=== PATIENT | male | born 1970 | race Caucasian/White ===

== ENCOUNTER 2022-05-18 07:35 | Outpatient (CLI) | payer OTHER, SELFPAY ==
--- NOTE | 2022-06-05 18:50 | WPDHOMESLEEP ---
Sleep Study - Home Unattended Date of Study: 05/18/22 Ordering Provider: Keren Gallego NP Interpreting Provider: Zina Beatty, DO Home Sleep Study Type: Watch PAT Height: 1.75 m Weight: 90.718 kg Body Mass Index: 29.5 Neck Circumference (inches): 16.75 [place]: 6 Reason for Sleep Study Loud snoring Sleep History The patient is a 51-year-old male with GERD and hyperlipidemia that had a sleep study ordered by his primary care for evaluation of sleep apnea. 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 He denies awakening from sleep short of breath. He occasionally awakens at night with heartburn, belching or cough. He constantly snores loud enough that others complain. He denies having trouble sleeping when he has a cold. He denies waking up gasping for air throughout the night. He denies having breathing problems at night observed by himself or others. He occasionally sweats excessively at night. He denies having heart palpitations or irregular heartbeats during the night. He occasionally falls asleep during the day but never while driving. He denies sleep paralysis, cataplexy and hypnagogic / hypnopompic hallucinations. He rarely feels afraid of going to sleep. He denies having trouble at school or work due to sleepiness. He denies having nightmares. He denies remembering his dreams. He occasionally has thoughts racing through his mind. He rarely feels sad or depressed. He occasionally has anxiety. He denies having muscular tension. He denies noticing parts of his body jerk. He denies kicking during the night. He denies having crawling and aching feelings in his legs as well as leg pain during the night. He denies grinding his teeth during sleep and awakening with morning jaw pain. He denies being bothered by pain during the day and being awakened by pain during the night. He denies waking up feeling stiff in the morning. He denies waking up with sore achy muscles. He denies waking up with pain in the neck, spine or other joints. He goes to bed at 7:30 p.m. on both weekdays and weekends. He is able to fall asleep within a few minutes. He wakes up twice throughout the night to urinate. He is able to fall back asleep immediately. He wakes up at 2:30 a.m. on both weekdays and weekends. He typically gets 6 hours of sleep per night. He does not stay in bed after waking up in the morning. He currently lives with his girlfriend and her daughter. He denies consuming any caffeinated beverages within 2 hours of bedtime. He does not engage in physical exercise before bedtime. He will watch television before falling asleep. He denies taking naps in the afternoon or the evening. He will consume 300 mg of caffeine per day. He denies tobacco, alcohol and recreational drug use. [facility] Past Medical History Medical History Acute shoulder pain Allergies BMI 28.0-28.9,adult CAD (coronary artery disease) Colon cancer screening Encounter to establish care Erectile dysfunction Fracture of skull (~2004) GERD (gastroesophageal reflux disease) Hemorrhoids Hyperlipidemia Hypersomnia Screening for prostate cancer Snoring Spontaneous pneumothorax (~1988) Tinea versicolor Wellness examination Family History Family History Father Cancer Hypertension Heart disease Cerebrovascular accident Grandparent Alcoholism Cancer Hypertension Heart disease Grandparent Cancer Diabetes mellitus Hypertension Heart disease Cerebrovascular accident Social History Social History Smoking status: Never smoker Alcohol intake: never Substance use: never Substance use type: does not use Medications Home Medications Medication Instructions Recorded Confirmed Type sildenafil 50 mg tablet (Viagra) 50 mg PO DAILY PRN sexual activity 05/30
[2022-06-05 23:35] VITALS: BMI 29.5
== END 2022-05-21 10:48 | disposition home or self-care (01) ==
PROVIDERS: PCP Nurse Practitioner Family; Visit Provider Nurse Practitioner Family
DX: G47.10 Hypersomnia, unspecified (principal)
CPT/HCPCS: 95800

== ENCOUNTER 2022-08-02 11:22 | Day surgery (SDC) | payer OTHER, SELFPAY ==
[2022-06-01 12:09] VITALS: BMI 29.5
[2022-07-18 14:28] VITALS: BMI 29.6
[2022-08-02 11:51] VITALS: BMI 29.3
[2022-08-02 11:54] VITALS: BP 135/77; PULSE 91; RESP 18; TEMP 37; O2SAT 100
--- NOTE | 2022-08-02 12:54 | PM.HPGS ---
History of Present Illness History of Present Illness Consent: Risks, benefits, and alternatives have been discussed and questions answered. Patient agrees to proceed with procedure. Chief complaint: Neoplasm Screening Narrative: Zach Cool is a 52 year old male Presents for screening colonoscopy. Patient's current weight appetite and bowel movements are normal. Patient denies abdominal pain. He has had no bleeding. Family history noncontributory. Patient does have a history of acid reflux disease. Currently well controlled with diet control and acid suppression. Patient currently takes pantoprazole 20mg p.o. daily. Review of Systems Review of Systems: Review of systems noncontributory. [facility] Past Medical History Medical History (Updated 07/23/22 @ 08:49 by Keren Gallego NP) Acute shoulder pain Allergies BMI 28.0-28.9,adult BMI 29.0-29.9,adult CAD (coronary artery disease) Colon cancer screening Encounter to establish care Erectile dysfunction Fracture of skull (~2004) GERD (gastroesophageal reflux disease) Hemorrhoids Hyperlipidemia Hypersomnia Screening for diabetes mellitus Screening for prostate cancer Snoring Spontaneous pneumothorax (~1988) Tinea versicolor Wellness examination Family History Family History Father Cancer Hypertension Heart disease Cerebrovascular accident Grandparent Alcoholism Cancer Hypertension Heart disease Grandparent Cancer Diabetes mellitus Hypertension Heart disease Cerebrovascular accident Social History Social History (Updated 07/23/22 @ 08:32 by Concepcion Tate, [facility]) Smoking status: Never smoker Alcohol intake: never Substance use: never Substance use type: does not use Lack of Transportation: No Lack of Food: Never True Current Housing: I Have Housing Concerned About Future Housing: No Difficulty Paying Gas/Electric Bills: No Difficulty Paying for Meds: No Currently Unemployed: No Education: Associate Degree Difficulty w/ Childcare or Family Care: No Living arrangements: alone Spiritual care concerns: No Meds Home Medications and Allergies Home Medications Medication Instructions Recorded Confirmed Type sildenafil 50 mg tablet (Viagra) 50 mg PO DAILY PRN sexual activity 05/30/21 07/23/22 Rx #9 tabs hydrocortisone 2.5 % topical cream 1 applic RECTAL DAILY PRN 03/23/22 07/23/22 Rx with perineal applicator hemorrhoids #30 grams pantoprazole 20 mg tablet,delayed 20 mg PO QAM #30 tabs 03/23/22 07/23/22 Rx release rosuvastatin 40 mg tablet 40 mg PO DAILY 03/23/22 07/23/22 History sodium,potassium,mag sulfates 17.5 See Rx Instructions PO .COMPLEX 06/01/22 07/23/22 Rx gram-3.13 gram-1.6 gram oral soln #354 mL (Suprep Bowel Prep Kit) fluconazole 150 mg tablet 300 mg PO . once weekly PRN Rash 07/18/22 07/23/22 History (Diflucan) multivitamin with minerals-folic 1 tablet PO DAILY 07/18/22 07/23/22 History acid 0.4 mg tablet terbinafine HCl 1 % topical cream 1 applic topical BID PRN Rash 07/18/22 08/02/22 History Allergies Allergy/AdvReac Type Severity Reaction Status Date / Time Penicillins Allergy Severe Other Verified 08/02/22 11:45 Exam Narrative: Physical exam reveals patient to be alert. Vital signs stable. HEENT exam is unremarkable. Patient is anicteric. Lungs are clear to auscultation and percussion. Heart is without murmur or extra sounds. Abdomen bowel sounds present soft nontender with no organomegaly. Digital external rectal exam is normal. Assessment and Plan Assessment and plan (1) Colon cancer screening: Code(s): Z12.11 - Encounter for screening for malignant neoplasm of colon Status: Acute Assessment and Plan: Patient presents today for screening colonoscopy. He appears to be at average risk for colon polyps. Further recommendations may be given after endoscopy.
[2022-08-02] MEDS: LACTATED RINGERS 1,000 ML 150 ML IV CONT ×2 (13:09→13:46)
--- NOTE | 2022-08-02 13:11 | WPDANESEPPF ---
Anes - Initial Pre Proc Eval Procedure: Operation Date: 08/02/22 13:00 Proposed Procedures p Screening Colonoscopy - Morgan Samaniego MD Date/Time: 08/02/22 13:11 Surgeon: Morgan Samaniego MD Pre Op Diagnosis: Neoplasm Screening Patient Data Age: 52 Gender: M Height: 1.75 m Weight: 90.1 kg Allergies Allergy/AdvReac Type Severity Reaction Status Date / Time Penicillins Allergy Severe Other Verified 08/02/22 11:45 Home Medications Medication Instructions Recorded Confirmed Type sildenafil 50 mg tablet (Viagra) 50 mg PO DAILY PRN sexual activity 05/30/21 07/23/22 Rx #9 tabs hydrocortisone 2.5 % topical cream 1 applic RECTAL DAILY PRN 03/23/22 07/23/22 Rx with perineal applicator hemorrhoids #30 grams pantoprazole 20 mg tablet,delayed 20 mg PO QAM #30 tabs 03/23/22 07/23/22 Rx release rosuvastatin 40 mg tablet 40 mg PO DAILY 03/23/22 07/23/22 History sodium,potassium,mag sulfates 17.5 See Rx Instructions PO .COMPLEX 06/01/22 07/23/22 Rx gram-3.13 gram-1.6 gram oral soln #354 mL (Suprep Bowel Prep Kit) fluconazole 150 mg tablet 300 mg PO . once weekly PRN Rash 07/18/22 07/23/22 History (Diflucan) multivitamin with minerals-folic 1 tablet PO DAILY 07/18/22 07/23/22 History acid 0.4 mg tablet terbinafine HCl 1 % topical cream 1 applic topical BID PRN Rash 07/18/22 08/02/22 History Patient hx anesthesia problems: none Family hx anesthesia problems: none Results Review: All pre-operative results and documents have been reviewed as part of the pre-operative evaluation. [facility] Past Medical History Medical History BMI 29.0-29.9,adult Colon cancer screening Erectile dysfunction GERD (gastroesophageal reflux disease) Hemorrhoids Hyperlipidemia Spontaneous pneumothorax (~1988) Family History Family History Father Cancer Hypertension Heart disease Cerebrovascular accident Grandparent Alcoholism Cancer Hypertension Heart disease Grandparent Cancer Diabetes mellitus Hypertension Heart disease Cerebrovascular accident Social History Social History Smoking status: Never smoker Alcohol intake: never Substance use: never Substance use type: does not use Lack of Transportation: No Lack of Food: Never True Current Housing: I Have Housing Concerned About Future Housing: No Difficulty Paying Gas/Electric Bills: No Difficulty Paying for Meds: No Currently Unemployed: No Education: Associate Degree Difficulty w/ Childcare or Family Care: No Living arrangements: alone Spiritual care concerns: No Anes - Eval Final PreProcedure Day of Procedure 08/02/22 13:11 Patient weight: overweight Heart: regular rate and rhythm Lungs: clear to auscultation Airway: Mallampati scale class II Neurological: alert and oriented Last oral intake: >/= 8 hours ASA classification: II Emergent: no Anesthetic plan: proceed Anesthesia type and monitoring: general GIVS and standard monitoring Results Review: All pre-operative results and documents have been reviewed as part of the pre-operative evaluation. Informed Consent: The patient's anesthetic plan and its attendant risks and benefits were discussed with the patient/family/POA. Questions were solicited and answers provided to the satisfaction of the patient/family/POA.
[2022-08-02 13:45] VITALS: BP 111/68; PULSE 77; RESP 12; O2SAT 99
--- NOTE | 2022-08-02 13:54 | WPDANESPN ---
Anes - Prog Note Post-Op Date/Time: 08/02/22 13:54 Cardiovascular status: normal Respiratory status: normal Airway patency: baseline Mental status: baseline Post-Op hydration status: normal Vital Signs: Last Vital Signs Temp 37.0 C 08/02/22 11:54 Pulse 77 08/02/22 13:45 Resp 12 08/02/22 13:45 BP 111/68 08/02/22 13:45 Pulse Ox 99 08/02/22 13:45 O2 Del Method Room Air 08/02/22 13:45 Pain Score (VAS): 0 Patient Feedback: Patient satisfied with anesthetic care.
[2022-08-02 13:55] VITALS: BP 105/68; PULSE 73; RESP 16; O2SAT 99
[2022-08-02 14:05] VITALS: BP 100/57; PULSE 80; RESP 18
== END 2022-08-02 14:25 | disposition home or self-care (01) ==
PROVIDERS: PCP Family Medicine; Visit Provider Internal Medicine Gastroenterology
PROC: 0DJD8ZZ Inspection of Lower Intestinal Tract, Via Natural or Artificial Opening Endoscopic (ICD-10-PCS; CPT 45378; principal; 2022-08-02 13:00)
DX: Z12.11 Encounter for screening for malignant neoplasm of colon (principal)
CPT/HCPCS: 45378

== ENCOUNTER → 2023-08-02 10:54 | Outpatient (CLI) | payer OTHER, SELFPAY ==
--- NOTE | ~2023-08-02 | MR_ITS ---
MRI of the left knee Clinical history: Pain Technique: Coronal proton density and proton density-weighted images, sagittal proton-density and T2 fat-sat images, and axial proton-density fat-saturated images were acquired. Findings: Anterior and posterior cruciate ligaments are intact. Medial collateral ligament and the la teral collateral ligament complex are intact. Popliteus tendon is intact. Medial and lateral menisci are intact, without evidence of tear. There is minimal chondromalacia patella. Remaining articular cartilage is well preserved. There is ma rrow edema at the medial corner of the medial femoral condyle, likely representing bone contusion fro m direct impaction injury. No fracture evident. Extensor mechanism is intact. No significant joint effusion or García's cyst. Impression: Bone contusion at the medial corner of the medial femoral condyle. Minimal chondromalacia patella. Reviewed, dictated and finalized at [facility]. 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 Minimal chondromalacia patella.
== END ==
PROVIDERS: PCP Nurse Practitioner Family; Visit Provider Nurse Practitioner Family
DX: M25.562 Pain in left knee (principal); S70.12XA Contusion of left thigh, initial encounter; M22.42 Chondromalacia patellae, left knee
CPT/HCPCS: 73721

== ENCOUNTER 2023-12-18 00:34 | Day surgery (SDC) | payer OTHER, SELFPAY ==
[2023-12-03 12:42] VITALS: BMI 31.1
--- NOTE | 2023-12-05 09:41 | PC.NURSE ---
Pt given instructions for procedure over the phone.
[2023-12-18] MEDS: LACTATED RINGERS 1,000 ML 150 ML IV CONT (11:17)
[2023-12-18 11:18] VITALS: BP 143/86; PULSE 74; RESP 14; TEMP 36.2; O2SAT 100
--- NOTE | 2023-12-18 11:26 | WPDANESEPPF ---
Anes - Initial Pre Proc Eval Procedure: Operation Date: 12/18/23 12:30 Proposed Procedures p Esophagogastroduodenoscopy - Chad Molina MD Date/Time: 12/18/23 11:26 Surgeon: Chad Molina MD Pre Op Diagnosis: GERD Patient Data Age: 53 Gender: M Height: 1.75 m Weight: 91.9 kg Last Vital Signs Temp 97.2 F L 12/18/23 11:18 Pulse 74 12/18/23 11:18 Resp 14 12/18/23 11:18 BP 143/86 H 12/18/23 11:18 Pulse Ox 100 12/18/23 11:18 O2 Del Method Room Air 12/18/23 11:18 Allergies Allergy/AdvReac Type Severity Reaction Status Date / Time Penicillins Allergy Severe Other Verified 12/18/23 11:09 Home Medications Medication Instructions Recorded Confirmed Type rosuvastatin 40 mg tablet 40 mg PO DAILY 03/23/22 12/03/23 History multivitamin with minerals-folic 1 tablet PO DAILY 07/18/22 12/03/23 History acid 0.4 mg tablet terbinafine HCl 1 % topical cream 1 applic topical BID PRN Rash 07/18/22 12/03/23 History fluconazole 150 mg tablet 300 mg PO WEEKLY PRN Rash #4 tabs 06/19/23 12/03/23 Rx pantoprazole 40 mg tablet,delayed 40 mg PO BID #60 tabs 10/09/23 12/03/23 Rx release Patient hx anesthesia problems: none Family hx anesthesia problems: none Results Review: All pre-operative results and documents have been reviewed as part of the pre-operative evaluation. [facility] Past Medical History Medical History BMI 29.0-29.9,adult BMI 30.0-30.9,adult Colon cancer screening Normal colonoscopy 08/02/2022 with recheck in 10 years. Elevated BP without diagnosis of hypertension Erectile dysfunction GERD (gastroesophageal reflux disease) Headache Hemorrhoids Hiatal hernia Hyperlipidemia Medial joint line tenderness of left knee Nasal congestion Pain of left knee after injury Spontaneous pneumothorax (~1988) Family History Family History Father Cancer Hypertension Heart disease Cerebrovascular accident Grandparent Alcoholism Cancer Hypertension Heart disease Grandparent Cancer Diabetes mellitus Hypertension Heart disease Cerebrovascular accident Social History Social History Smoking status: Never smoker Alcohol intake: never Substance use: never Substance use type: does not use Lack of Transportation: No Lack of Food: Never True Current Housing: I Have Housing Concerned About Future Housing: No Difficulty Paying Gas/Electric Bills: No Difficulty Paying for Meds: No Currently Unemployed: No Education: Associate Degree Difficulty w/ Childcare or Family Care: No Living arrangements: with family Spiritual care concerns: No Anes - Eval Final PreProcedure Day of Procedure 12/18/23 11:26 Patient weight: normal Heart: regular rate and rhythm Lungs: clear to auscultation Airway: Mallampati scale class II Neurological: alert and oriented Last oral intake: >/= 8 hours ASA classification: II Emergent: no Anesthetic plan: proceed Anesthesia type and monitoring: general GIVS and standard monitoring Results Review: All pre-operative results and documents have been reviewed as part of the pre-operative evaluation. Informed Consent: The patient's anesthetic plan and its attendant risks and benefits were discussed with the patient/family/POA. Questions were solicited and answers provided to the satisfaction of the patient/family/POA.
--- NOTE | 2023-12-18 11:35 | PM.HPGS ---
History of Present Illness History of Present Illness Consent: Risks, benefits, and alternatives have been discussed and questions answered. Patient agrees to proceed with procedure. Chief complaint: GERD Narrative: Zach Cool Jr. is a 53 year old male with longstanding gerd using protonix bid which is helping, last egd ~ 8 years ago Review of Systems Review of Systems: All systems reviewed & are unremarkable except as noted in HPI and below PMFSH Past Medical History Medical History BMI 29.0-29.9,adult BMI 30.0-30.9,adult Colon cancer screening Normal colonoscopy 08/02/2022 with recheck in 10 years. Elevated BP without diagnosis of hypertension Erectile dysfunction GERD (gastroesophageal reflux disease) Headache Hemorrhoids Hiatal hernia Hyperlipidemia Medial joint line tenderness of left knee Nasal congestion Pain of left knee after injury Spontaneous pneumothorax (~1988) Family History Family History Father Cancer Hypertension Heart disease Cerebrovascular accident Grandparent Alcoholism Cancer Hypertension Heart disease Grandparent Cancer Diabetes mellitus Hypertension Heart disease Cerebrovascular accident Social History Social History Smoking status: Never smoker Alcohol intake: never Substance use: never Substance use type: does not use Lack of Transportation: No Lack of Food: Never True Current Housing: I Have Housing Concerned About Future Housing: No Difficulty Paying Gas/Electric Bills: No Difficulty Paying for Meds: No Currently Unemployed: No Education: Associate Degree Difficulty w/ Childcare or Family Care: No Living arrangements: with family Spiritual care concerns: No Meds Home Medications and Allergies Home Medications Medication Instructions Recorded Confirmed Type rosuvastatin 40 mg tablet 40 mg PO DAILY 03/23/22 12/03/23 History multivitamin with minerals-folic 1 tablet PO DAILY 07/18/22 12/03/23 History acid 0.4 mg tablet terbinafine HCl 1 % topical cream 1 applic topical BID PRN Rash 07/18/22 12/03/23 History fluconazole 150 mg tablet 300 mg PO WEEKLY PRN Rash #4 tabs 06/19/23 12/03/23 Rx pantoprazole 40 mg tablet,delayed 40 mg PO BID #60 tabs 10/09/23 12/03/23 Rx release Allergies Allergy/AdvReac Type Severity Reaction Status Date / Time Penicillins Allergy Severe Other Verified 12/18/23 11:09 Vital Signs Vital Signs - 24 hr 12/18/23 11:18 Temperature 97.2 F L Pulse Rate 74 Respiratory Rate 14 Blood Pressure 143/86 H Pulse Oximetry 100 Oxygen Delivery Room Air Exam Const: General: comfortable and no acute distress HENMT: Face/Nose/Sinus: Normal nares present Eyes: General: appearance normal, both eyes and all related structures Neck: Neck: no JVD Resp: Auscultation: clear to auscultation bilaterally Cardio: Rate: regular rate Rhythm: regular rhythm GI: Inspection: non-distended GI Palp: Yes Soft to palpation Skin: General skin exam: normal color Neuro: General: gait normal Speech: normal speech Extrem: General: normal to inspection Psych: Mental Status: mental status grossly normal Assessment and Plan Assessment and plan (1) GERD (gastroesophageal reflux disease): Code(s): K21.9 - Gastro-esophageal reflux disease without esophagitis Status: Acute Assessment and Plan: egd with bx on protonix
[2023-12-18 11:47] VITALS: BP 111/75; PULSE 78; RESP 18; O2SAT 97
[2023-12-18 11:57] VITALS: BP 110/76; PULSE 67; RESP 22; O2SAT 96
[2023-12-18 12:07] VITALS: BP 108/85; PULSE 73; RESP 21; O2SAT 98
== END 2023-12-18 12:16 | disposition home or self-care (01) ==
PROVIDERS: PCP Nurse Practitioner Family; Visit Provider Internal Medicine Gastroenterology
PROC: 0DJ08ZZ Inspection of Upper Intestinal Tract, Via Natural or Artificial Opening Endoscopic (ICD-10-PCS; CPT 43235; principal; 2023-12-18 12:30)
DX: K21.9 Gastro-esophageal reflux disease without esophagitis (principal); K44.9 Diaphragmatic hernia without obstruction or gangrene; E78.5 Hyperlipidemia, unspecified
CPT/HCPCS: 43239; 88305; J2704; J7120